=== PATIENT | female | born 1940 | race Caucasian/White ===

== ENCOUNTER → 2016-12-07 | Outpatient (CLI) | payer OTHER ==
[~2016-12-07] MED LIST: NS 100 ML IV 100 ML IV ONE
[2016-12-07 19:35] LABS: CREATININE 0.99 mg/dL (0.55-1.02)
--- NOTE | 2016-12-08 08:22 | CT ---
HISTORY: Left ovarian cancer Study: CT chest with contrast Comparison: 06/09/2016 Technique: Multiple axial images of the chest were obtained from the thoracic inlet to the upper abd omen after the administration of IV contrast. Dose reduction techniques including Automated Exposur e Control (AEC) and adjustment of mA and kV were utilized. Findings: Stable right IJ port catheter. No vascular abnormality is identified. Normal appearance of the heart and pericardium. The aorta appears normal in course and caliber. The lungs are clear without effusi on, consolidation, or pneumothorax. Airways are patent. The soft tissues and osseous structures appear intact. Multiple hepatic cystic lesions are again see n. See separately dictated abdomen/pelvis CT report. IMPRESSION: 1. Negative CT of the chest. No acute abnormality or significant interval change from prior. Reported By:
--- NOTE | 2016-12-08 08:27 | CT ---
HISTORY: Left ovarian cancer Study: CT abdomen and pelvis without contrast Comparison: 06/09/2016 Technique: Multiple axial images of the abdomen and pelvis were obtained with IV contrast. Oral contrast was a dministered. Dose reduction techniques including Automated Exposure Control (AEC) and adjustment of mA and kV were utilized. Findings: The visualized portions of the lung bases are unremarkable. Multiple well-circumscribed hypodense r ound ovoid lesions are seen throughout liver parenchyma likely representing simple cysts. These lesi ons appear unchanged from prior exam. The gallbladder is normal. The spleen, pancreas, kidneys, and adrenal glands are also stable and unremarkable. No free intraperitoneal air. No evidence of intestinal obstruction or inflammation. Oral contrast re aches the transverse colon. The appendix is not visualized. No ascites. The uterus and ovaries are r emoved. There is a small fat containing periumbilical hernia. There are degenerative changes of the lumbosac ral spine noted. No acute osseous abnormality. The vascular structures are unremarkable. No patholog ically enlarged lymph nodes are identified. Normal appearance of the urinary bladder. IMPRESSION: 1. Negative CT of the abdomen and pelvis. No evidence of metastatic disease. No significant change f rom prior exam. 2. Stable hepatic cysts. Reported By:
== END ==
LOC: RAD 18:27
PROVIDERS: ATTEND Internal Medicine Hematology & Oncology
DX: C56.2 Malignant neoplasm of left ovary (principal)
CPT/HCPCS: 36415; 71260; 74176; 82565; 84520; A4222

== ENCOUNTER → 2017-03-15 | Outpatient (CLI) | payer OTHER ==
[2017-03-15 21:55] LABS: CREATININE 0.93 mg/dL (0.55-1.02)
--- NOTE | 2017-03-16 07:25 | CT ---
HISTORY: Follow up ovarian cancer Study: CT chest abdomen pelvis with contrast Comparison: December 07, 2016 Technique: Axial post-contrast images with coronal and sagittal reformats. Dose reduction procedures were used with MA/kv adjusted for body size. Findings: CT chest with contrast: Examination of the mediastinum demonstrated no evidence for mediastinal mass es, enlarged lymphadenopathy, or enlarged hilar adenopathy. No pleural effusions are identified. No chest wall or axillary abnormality is identified. Examination of the lung bach demonstrated no sig nificant nodules, alveolar infiltrates, areas of consolidation, masses, peribronchial thickening or bronchiectasis. Hyperinflation is present. CT abdomen pelvis with contrast: The liver is normal in size and configuration and without significa nt focal space-occupying disease. Multiple cysts are again identified. The spleen, adrenal glands, a nd pancreas are within normal limits. No opaque stones are visible within the gallbladder. The kidne ys are unobstructed and without stones or masses. No ureteral calculi are identified. The appendix i s surgically absent by history. Calcific atherosclerotic changes present in a nondilated abdominal a nadine. No intraperitoneal or retroperitoneal lymphadenopathy of significance is identified. There is no evidence for diverticulitis or colitis. The peritoneal surfaces are clear. No ascites is present. Examination of the pelvis demonstrated no evidence for pelvic masses, pelvic fluid, or pelvic lymph adenopathy. No bladder abnormality is identified. No lytic or blastic skeletal lesions are identifie d. IMPRESSION: No evidence for recurrent or metastatic ovarian cancer in the chest abdomen or pelvis. Reported By:
== END ==
LOC: RAD 20:56
PROVIDERS: ATTEND Internal Medicine Hematology & Oncology
DX: C56.2 Malignant neoplasm of left ovary (principal)
CPT/HCPCS: 36415; 71260; 74176; 82565; 84520; A4222

== ENCOUNTER → 2017-06-14 | Outpatient (CLI) | payer OTHER ==
--- NOTE | 2017-06-16 08:25 | MG ---
HISTORY: SCREENING Comparison: February 14, 2014 FINDINGS: Bilateral CC and MLO projections of the right and left breast were obtained. Scattered fibroglandula r tissue is seen to be present without significant interval change. No suspicious architectural dist ortion, mass or clustered microcalcifications can be observed to suggest malignancy. No skin thicken ing or nipple retraction is appreciated. No pathological lymphadenopathy can be identified. Benign- appearing calcifications are noted within the right and left breast. There is a right-sided Port-A-Ca th. IMPRESSION: NO RADIOGRAPHIC EVIDENCE OF MALIGNANCY. ACR CATEGORY 2 - benign findings. FOLLOW-UP EXAM 1 YEAR. Diagnostic CAD was utilized and reviewed. * 0 (ZERO) - ASSESSMENT INCOMPLETE; ADDITIONAL IMAGING IS NEEDED. * 1/ (ONE) - NEGATIVE. * 2/II (TWO) - BENIGN FINDINGS. * 3/III (THREE) - PROBABLY BENIGN FINDING; SHORT INTERVAL FOLLOW-UP SUGGESTED. * 4/IV (FOUR) - SUSPICIOUS ABNORMALITY; BIOPSY SHOULD BE CONSIDERED. * 5/V (FIVE) - HIGHLY SUSPICIOUS OF MALIGNANCY; BIOPSY SHOULD BE PERFORMED. A NEGATIVE X-RAY REPORT SHOULD NOT DELAY BIOPSY IF A DOMINANT OR CLINICALLY SUSPICIOUS MASS IS PRESENT; 4 TO 8 PERCENT OF CANCERS ARE NOT IDENTIFIED BY X-RAY. A NEGA TIVE REPORT MAY REINFORCE THE CLINICAL IMPRESSION. ADENOSIS AND DENSE BREASTS MAY OBSCURE AN UNDERLY ING NEOPLASM. Reported By:
== END ==
LOC: RAD 21:00
PROVIDERS: ATTEND Nurse Practitioner Family
DX: Z12.31 Encounter for screening mammogram for malignant neoplasm of breast (principal)
CPT/HCPCS: 77067

== ENCOUNTER → 2017-10-13 | Outpatient (CLI) | payer OTHER ==
--- NOTE | 2017-10-14 07:37 | RAD ---
Examination: Right hip, two views History: Hip pain, ovarian cancer Findings: No definite hip fracture, dislocation, bone destruction or pathologic calcification. There is slight narrowing of the joint space. The femoral head is in normal position. Impression: Mild osteoarthritis, no acute findings. Reported By:
== END | disposition home or self-care (01) | DRG 756 ==
LOC: RAD 21:59
PROVIDERS: ATTEND Internal Medicine Hematology & Oncology
DX: C56.2 Malignant neoplasm of left ovary (principal); M25.551 Pain in right hip; M16.11 Unilateral primary osteoarthritis, right hip
CPT/HCPCS: 73501